=== PATIENT | female | born 1975 | race Caucasian/White ===

== ENCOUNTER 2016-07-09 13:12 | Day surgery (SDC) | payer BC ==
--- NOTE | ~2016-07-09 | OP ---
Record Of [place] [address] [place]. [address] NAME: TOREY CASAS : [birth year] STATUS : [facility]#: [id number] AGE: 40 ADM/REG DATE : 07/09/16 MR#: [id number] REPORT SERV DATE: 07/09/16 DICTATED BY: MANI DIETRICH III DATE: 07/09/16 REPORT STATUS : Draft TRANSCRIBED BY: MODL DATE: 07/09/16 DATE OF PROCEDURE: 07/09/2016 PREOPERATIVE DIAGNOSES: 1. Microhematuria. 2. Frequency. POSTOPERATIVE DIAGNOSIS: Follicular cystitis. PROCEDURE: Cystoscopy and hydrodistention of bladder. SURGEON: Mani Dietrich M.D. ANESTHESIA: General. SPECIMENS: None. DRAIN: None. BLOOD LOSS: None. INDICATION: Ms Casas is a 40-year-old white female, who is undergoing a microhematuria evaluation. She also has some urinary frequency. Consent is obtained for cystoscopy and hydrodistention. DESCRIPTION OF PROCEDURE: Consent was obtained, the patient was identified. She was taken to the OR and put to sleep. She was positioned in the low lithotomy position and prepped and draped in the usual fashion. The 22-Surinamese cystoscope was inserted into the bladder. The bladder was inspected in its entirety. There were no tumors, stones, or foreign bodies. There was a small patch of follicular cystitis on the floor just above the trigone. With the irrigant at approximately 80 cm above the level of the bladder, hydrodistention was performed three times, the volumes were 700 mL and then 800 mL and then 800 mL. There were no wall changes noted in the urothelium. After the distention, the bladder was drained. The scope was removed. The patient was awakened and taken to recovery in stable condition. PH/MODL Mani Dietrich III, M.D. / [id number] CC: Mani Dietrich III, M.D. Record Of [address] [place]. [address] NAME: TOREY CASAS DOB: [birth year] STATUS : [facility] PAT#: [id number] AGE: 40 ADM/REG DATE : 07/09/16 MR#: [id number] REPORT SERV DATE: 07/09/16 DICTATED BY: MANI DIETRICH III DATE: 07/09/16 REPORT STATUS : Draft TRANSCRIBED BY: MODL DATE: 07/09/16 Tevin Lao II, M.D.
[~2016-07-09 13:12] MED LIST: ARMOUR THYRO30 MG PO; ARMOUR THYRO60 MG PO; EXCEDRIN EXTRA1 EACH PO; KLONO2 PO; MOBIC15 MG PO; MYRBETRIQ50 MG PO; PRISTIQ100 MG PO; RANITIDINE300 MG PO; SINGULAIR1 PO; ZYRTEC ALLGY10 MG PO; [UNRECOGNIZED DRUG - REMARK]
== END 2016-07-09 20:21 | disposition home or self-care (01) ==
LOC: SDC 13:12
PROVIDERS: Urology
PROC: 0TJB8ZZ Inspection of Bladder, Via Natural or Artificial Opening Endoscopic (ICD-10-PCS; principal; 2016-07-09 14:45)
DX: N30.31 Trigonitis with hematuria (principal); E66.9 Obesity, unspecified; E03.9 Hypothyroidism, unspecified; F41.9 Anxiety disorder, unspecified; F32.9 Major depressive disorder, single episode, unspecified; Z98.890 Other specified postprocedural states
CPT/HCPCS: 84703; J2250; J3010